=== PATIENT | male | born 1955 | race Caucasian/White ===

== ENCOUNTER → 2018-09-14 15:21 | Outpatient (CLI) | payer OTHER, SELFPAY ==
--- NOTE | 2018-09-14 15:33 | XR_ITS ---
XR shoulder RT min 2V HISTORY: ITS.REASON: RT SHOULDER PAIN ORDERING PHYSICIAN: Mega Argueta MD PATIENT AGE: 62 years Comparison: None FINDINGS: No fracture or dislocation. No lytic or blastic change. There is normal mineralization. There are mild osteoarthritic changes of the acromioclavicular joint. No fracture or dislocation. No lytic or blastic change. IMPRESSION: Mild osteoarthritic change of the AC joint otherwise negative right shoulder
== END ==
PROVIDERS: PCP Family Medicine; Visit Provider Family Medicine
DX: M25.511 Pain in right shoulder (principal)
CPT/HCPCS: 73030

== ENCOUNTER → 2019-05-08 14:10 | Outpatient (POV) | payer OTHER, SELFPAY | PROVIDERS: Visit Provider Dermatology | DX: Z00.00 Encounter for general adult medical examination without abnormal findings (principal) ==

== ENCOUNTER → 2019-05-29 11:22 | Outpatient (POV) | payer OTHER, SELFPAY | PROVIDERS: Visit Provider Dermatology | DX: Z00.00 Encounter for general adult medical examination without abnormal findings (principal) ==

== ENCOUNTER → 2020-11-21 13:21 | Outpatient (CLI) | payer MEDICARE, SELFPAY ==
--- NOTE | 2020-11-21 13:53 | US_ITS ---
PROCEDURE: US TESTICULAR CLINICAL INDICATION: Pain and swelling COMPARISON: No exams were available for comparison FINDINGS: There is a large right hydrocele. The testicle measures 5 by 2.6 by 3.5 cm. Blood flow is present. No masses evident within the testicle. The right epididymis is not clearly demonstrated. The left testicle is 4 x 2 by 2 cm. Blood flow is present. A small epididymal cyst is present at 7 mm. No significant left hydrocele. IMPRESSION: Large right hydrocele. No testicular mass. There is bilateral testicular blood flow. There is a small left epididymal cyst. Dictated by: Iggy Lee MD 11/21/2020 18:01 Iggy Lee MD in OV 11/21/2020 18:01
== END ==
PROVIDERS: PCP Family Medicine; Visit Provider Urology
DX: N50.89 Other specified disorders of the male genital organs (principal)
CPT/HCPCS: 76870

== ENCOUNTER → 2021-01-21 12:44 | Outpatient (CLI) | payer MEDICARE, SELFPAY ==
[2021-01-21 12:47] LABS: MANUAL DIFFERENTIAL MANUAL DIFFERENTIAL (MANUAL DIFF)
[2021-01-21 13:09] LABS: Basophils # 0.1 K/mm3 (0-0.2); Basophils % 0.8 % (0.1-2.0); Eosinophils # 0.1 K/mm3 (0.0-0.4); Eosinophils % 1.9 % (0.1-12.0); Hematocrit 43.7 % (42.0-52.0); Hemoglobin 15.3 g/dL (14.1-18.0); Lymphocytes % 40.8 % (10-50); Mean Corpuscular Hemoglobin 30.5 pg (27.0-31.2); Mean Corpuscular Volume 87.1 fl (80-94); Mean Platelet Volume 7.7 fl (7.4-10.4); Monocytes # 0.4 K/mm3 (0.1-1.0); Neutrophils # 3.7 K/mm3 (1.8-7.8); Neutrophils % 50.4 % (37.0-80.0); Platelet Count 267 K/mm3 (142-424); Red Blood Count 5.01 M/mm3 (4.60-6.20); Red Cell Distribution Width 13.8 % (11.5-17.5); White Blood Count 7.3 K/mm3 (4.8-10.8)
[2021-01-21 13:40] LABS: Anion Gap 14.4 mEq/L (5-15); Blood Urea Nitrogen 15 mg/dl (9-20); Carbon Dioxide 25 mmol/L (22.0-30.0); Chloride 104 mmol/L (98-107); Estimated Glomerular Filt Rate 61 ml/min (>60); GFR (African American) 74 ML/MIN (>60); Glucose 112 mg/dl (74-100); Potassium 4.4 mmoL/L (3.5-5.1); Sodium 139 mmol/L (136-145)
[2021-01-21 13:55] LABS: Lymphocytes % 20 % (10-50); Monocytes % 3 % (2-9); Neutrophils % 77 % (42-76); Platelet Estimate Normal; Total Cells Counted 100
[2021-01-21 13:56] LABS: Hypochromasia 1+
== END ==
PROVIDERS: Visit Provider Urology
DX: N43.3 Hydrocele, unspecified (principal); Z11.52 Encounter for screening for COVID-19; Z01.818 Encounter for other preprocedural examination
CPT/HCPCS: 36415; 80048; 85007; 85014; 85018; 85048; 85049; U0003

== ENCOUNTER 2021-01-23 09:12 | Day surgery (SDC) | payer MEDICARE, SELFPAY ==
[2021-01-19 12:33] VITALS: BMI 27.1
[2021-01-23] VITALS (10 sets, daily range): BP systolic 127–161; BP diastolic 72–93; PULSE 55–74; RESP 16–18; TEMP 36.2–36.7; O2SAT 91–99
--- NOTE | 2021-01-23 09:57 | P.PN_ITS ---
[facility] Anesthesia Checklist - Patient Identification Patient Identification: Arm Band - Structural Data Admitted From: Home Planned Operative Procedure/s: Right hydrocelectomy Consent for Planned Operative Procedure(s) Verified: Yes Verified Documents: Surgical Consent, History and Physical - NPO Status Verified Time NPO: 00:00 - Airway Assessment C-Spine Mobility Assessed: Yes TMJ Mobility Assessed: Yes Dentition: Poor Dentition - Neurological Assessment Level of Consciousness: Awake, Alert - Anesthesia Plan Anesthesia Risk discussed: Yes Anesthesia Plan: Verified ASA Class: II Anesthesia Type: General [facility] History Medical History: Reports:: Hyperlipidemia Denies:: Cancer, Diabetes Mellitus Type 1, Diabetes Mellitus Type 2, MRSA *Have you ever received a pneumonia vaccine?: No *Have you received a flu vaccine this season?: No Other Medical History: Reports: Arthritis Anesthesia experience/problems:: None Other Surgeries: Yes: No Previous Surgery, Colonoscopy Amputation: No Fractures: No - *Social History Last grade of school completed: High school graduate Smoking Status: Never smoker Alcohol Intake: current Alcohol Intake Frequency:: a few times a week Substance Use Type: denies use *Occupational Status:: employed Housing: house Household Members: spouse *Travel in the last 8 weeks: Inside the [facility] Family Hx:: Cancer, Stroke
--- NOTE | 2021-01-23 12:41 | HMH.OPNOTE ---
Date of procedure: 01/23/21 Pre-op Diagnosis:: Right hydrocele Post-op Diagnosis:: Right hydrocele Procedure performed:: Right hydrocelectomy Surgeon:: Nadir Ramírez MD HYDROLOGIC MODELER:: Harvey Arriaga Anesthesia: MAC Estimated blood loss (mL): 20 Clinical Note:: 65-year-old white male with right hydrocele presents for surgical management. Operative findings:: Right hydrocele contains about 300 cc of carrie fluid. The testicle is normal. Procedure was performed without complication. Operative note:: Patient taken to the operating room after informed consent was obtained. Was placed on the operating table in supine position and general anesthesia administered. Preoperative antibiotics and sequential compression devices placed. He was prepped and draped in the standard surgical fashion. A cord block was placed into the right inguinal canal and local anesthetic was also placed into the midline raphae. Scalpel was used to incise midline raphae for a length of about 10 cm. Incision was carried down through the dartos fascia and once the hydrocele sac was reached we were able to bluntly dissect the tissues from around the sac and the hydrocele sac was brought out through the incision. The hydrocele sac was incised and 300 cc of carrie fluid were obtained. The sac was opened in its entirety and a portion of the sac was excised as there was redundancy to the sac. The testicle was normal. The sac was sewn together behind the testicle with a 3-0 running chromic. Care was taken not to make the neck of the closure too tight. Hemostasis then achieved of the soft tissues and the testicle was placed back into the hemiscrotum. A drain was placed into the dependent portion of the right hemiscrotum and sewn to the skin with 3-0 silk. The dartos fascia was closed with a running 3-0 chromic and the skin closed with 4 oh horizontal mattress sutures. Compression dressing applied. Patient tolerated procedure well no complications. Condition: stable Disposition: PACU Specimens:: Hydrocele sac Complications:: None
--- NOTE | 2021-01-23 14:29 | P.PN_ITS ---
[facility] Anesthesia Record Part I Intake, IV Amount: 1,000 Estimated blood loss (mL): 10 Urine output (mL): 0 Blood Products used (#): none Blood Pressure: 129/72 SaO2: 95 Pulse Rate: 68 Respiratory Rate: 16 Temperature: 97.1 F Patient is:: Awake, Drowsy Stable to PACU at:: 12:40
--- NOTE | 2021-01-26 08:52 | P.PN_ITS ---
[facility] Anesthesia Record Part II Discharge Time: 13:06 Destination: Surgical Day Care (OP Surgery) PACU nurse assessment reviewed?: Yes Patient Condition:: Good Anesthesia Complications:: None Swallowing reflex intact?: Yes Cyanosis?: No Blood Pressure: 151/89 Pulse Rate: 73 Temperature: 97.2 F Mental Status: Alert & Oriented Pain level:: 0 Nausea and/or vomitting:: None Intake, IV Amount: 0
[2021-01-26 08:53] VITALS: BP 151/89; PULSE 73; TEMP 36.2
== END 2021-01-23 13:37 | disposition home or self-care (01) ==
LOC: OR 09:16
PROVIDERS: PCP Family Medicine; Visit Provider Urology
DX: N43.3 Hydrocele, unspecified (principal)
CPT/HCPCS: 55040; 96374; J0131; J2405